=== PATIENT | female | born 1960 | race Caucasian/White ===

== ENCOUNTER 2018-11-25 16:27 | Emergency (ER) | payer BC ==
[2018-11-25] MEDS ORDERED: Morphine 4 MG/ML VIAL (1 ml) 4 MG/ML VIAL IV ONE (16:49)
[2018-11-25] MEDS ORDERED: Ondansetron INJ* 2 MG/ML VIAL IV ONE (16:51)
--- NOTE | 2018-11-25 17:09 | ED ---
Adult Trauma - HPI Summary HPI Summary: 58 year female presents with chest pain and left shoulder after horse kicked her today. She states the horse ended up pinning her against a wall. She admits to shortness of breath. Denies abdominal pain. No neck pain. No head injury. No loss consciousness. No nausea vomiting. No lower extremity pain. Denies any other injury. Pain is severe. Has no medical conditions. Is not on blood thinners. is not a smoker. - History of Current Complaint Chief Complaint: EDTraumaMultiple Stated Complaint: I GOT KICKED IN THE CHEST BY A HORSE PER PT Time Seen by Provider: 11/25/18 16:46 Hx Last Menstrual Period: 09/03/13 Pain Intensity: 8 - Allergy/Home Medications Allergies/Adverse Reactions: Allergies Allergy/AdvReac Type Severity Reaction Status Date / Time No Known Allergies Allergy Verified 11/25/18 16:49 PMH/Surg Hx/FS Hx/Imm Hx Respiratory History: Denies: Hx Asthma - Surgical History Surgery Procedure, Year, and Place: RIGHT TOTAL KNEE REPLACEMENT. LEFT ANKLE REPAIR Infectious Disease History: No Infectious Disease History: Denies: Traveled Outside the [place] in Last 30 Days - Family History Known Family History: Positive: Non-Contributory - Social History Alcohol Use: Occasionally Substance Use Type: Reports: None Smoking Status (MU): Never Smoked Tobacco Review of Systems Negative: Fever Positive: Chest Pain Positive: Shortness Of Breath Negative: Abdominal Pain Positive: Myalgia - left shoulder pain All Other Systems Reviewed And Are Negative: Yes Physical Exam Triage Information Reviewed: Yes Vital Signs On Initial Exam: Initial Vitals Temp Pulse Resp BP Pulse Ox 98.6 F 88 18 139/98 97 11/25/18 16:36 11/25/18 16:36 11/25/18 16:36 11/25/18 16:36 11/25/18 16:36 Vital Signs Reviewed: Yes Appearance: Positive: Pain Distress Skin: Positive: Warm, Dry Head/Face: Positive: Normal Head/Face Inspection Eyes: Positive: Normal, Conjunctiva Clear ENT: Positive: Pharynx normal Neck: Positive: Other: - nontender neck, full ROM neck Respiratory/Lung Sounds: Positive: Clear to Auscultation, Breath Sounds Present , Other - tenderness over sternum Cardiovascular: Positive: Normal, RRR Abdomen Description: Positive: Nontender, Soft Bowel Sounds: Positive: Present Musculoskeletal: Positive: Limited @ - left shoulder, Other - good pulses, good cutting machine operator strength Neurological: Positive: Normal Psychiatric: Positive: Normal Diagnostics - Vital Signs Vital Signs Temp Pulse Resp BP Pulse Ox 11/25/18 16:49 95 24 158/100 100 11/25/18 16:36 98.6 F 88 18 139/98 97 - Laboratory Result Diagrams: 11/25/18 17:07 11/25/18 17:07 Lab Statement: Any lab studies that have been ordered have been reviewed, and results considered in the medical decision making process. - Radiology chest Radiology Interpretation Completed By: Radiologist Summary of Radiographic Findings: IMPRESSION: NO ACTIVE CARDIOPULMONARY DISEASE. shoulder Radiology Interpretation Completed By: Radiologist Summary of Radiographic Findings: IMPRESSION: Mild diastasis of the left AC joint which May indicate ligamentous injury. Re-Evaluation - Re-Evaluation First Eval Re-Evaluation Time: 17:54 Change: Improved - feeling better after pain medication Adult Trauma Course/Dx - Course Course Of Treatment: 58 year female presents with chest pain and left shoulder after horse kicked her today. She states the horse ended up pinning her against a wall. She admits to shortness of breath. Denies abdominal pain. No neck pain. No head injury. No loss consciousness. No nausea vomiting. No lower extremity pain. Denies any other injury. Pain is severe. Has no medical conditions. Is not on blood thinners. is not a smoker. on exam tenderness anterior chest over sternum. lungs CTA. abd soft nontender. tenderness over left shoulder. neurovascular intact. chest xray no acute findings. shoulder xray shows AC separation. chest CT shows ribs fracture right 5-6th nondisplaced. gave sling. will give pain medication. told follow up with patient understand and agrees with plan. - Diagnoses Differential Diagnosis/HQI/PQRI: Positive: Contusion(s), Fracture, Sprain Provider Diagnoses: AC separation, Rib fractures Discharge - Sign-Out/Discharge Documenting (check all that apply): Patient Departure Patient Received Moderate/Deep Sedation with Procedure: No - Discharge Plan Condition: Good Disposition: HOME Prescriptions: oxyCODONE/Acetamin 5/325 MG* [Percocet 5/325 TAB*] 1 tab PO Q6H PRN #20 tab MDD 4 PRN Reason: Pain Patient Education Materials: Rib Fracture (ED) Referrals: [facility] [Outside] Lauri Farmer MD [Medical Doctor] - Additional Instructions: Take deep breath throughout the day Take Ibuprofen or Tylenol for pain every 6 hours, use percocet every 6 hours as needed for pain Follow up with [facility] use sling ice Follow up with ortho if no improvement with arm, do ROM of shoulder as tolerated Return to ED if develop new productive cough, fever, or any new or worsening symptoms - Billing Disposition and Condition Condition: GOOD Disposition: Home
[2018-11-25 17:15] LABS: ABS Basophils 0 10^3/ul (0-0.2); ABS Eosinophils 0 10^3/ul (0-0.6); ABS Lymphocytes 1.3 10^3/ul (1.0-4.8); ABS Monocytes 0.8 10^3/ul (0-0.8); ABS Neutrophils 4.9 10^3/ul (1.5-7.7); ABS Nucleated RBC 0 10^3/ul; Eosinophil % 0.5 %; Hematocrit 38 % (33-41); Hemoglobin 12.9 g/dL (12.0-16.0); Lymphocyte % 18.3 %; Mean Corpuscular HGB Conc 34 g/dL (31-36); Mean Corpuscular Hemoglobin 28 pg (27-31); Mean Corpuscular Volume 83 fL (80-97); Mean Platelet Volume 7.2 fL (7.4-10.4); Nucleated Red Blood Cells % 0.1; Platelet Count 272 10^3/uL (150-450); Red Blood Count 4.61 10^6 /uL (3.70-4.87); Red Cell Distribution Width 13 % (10.5-15); White Blood Count 7.1 10^3/uL (3.5-10.8)
[2018-11-25 17:32] LABS: Albumin 4.3 g/dL (3.2-5.2); Albumin/Globulin Ratio 1.3 (1-3); BUN/Creatinine Ratio 19.3 (8-20); Calcium 9.4 mg/dL (8.6-10.3); EGFR African American 85.1 (>60); EGFR Non-African American 70.4 (>60); Globulin 3.3 g/dL (2-4); Potassium 4.1 mmol/L (3.5-5.0); Total Bilirubin 0.3 mg/dL (0.2-1.0); Total Protein 7.6 g/dL (6.4-8.9)
[2018-11-25 17:51] LABS: INR 0.93 (0.77-1.02)
[2018-11-25] MEDS ORDERED: Iohexol 300* (CONTRAST) 10 ML SDV IV ONE (18:06)
[2018-11-25 20:20] VITALS: BP 127/73
== END 2018-11-25 20:20 | disposition home or self-care (01) ==
LOC: ED 16:27
DX: S43.102A Unspecified dislocation of left acromioclavicular joint, initial encounter (principal); S22.41XA Multiple fractures of ribs, right side, initial encounter for closed fracture; R06.02 Shortness of breath; W55.12XA Struck by horse, initial encounter; Y92.9 Unspecified place or not applicable; Z96.651 Presence of right artificial knee joint
CPT/HCPCS: 36415; 71045; 71260; 74177; 80053; 85025; 85610; 96374; 96375; 99283; J2270; J2405; Q9967